=== PATIENT | male | born 1980 ===

== ENCOUNTER → 2021-05-30 | Outpatient (CLI) | payer OTHER ==
--- NOTE | 2021-05-30 09:04 | RAD ---
EXAM: Bilateral digital diagnostic mammogram with tomosynthesis; bilateral breast sonogram. HISTORY: 40-year-old male presents with a left breast lump. TECHNIQUE: Full-field digital craniocaudal and mediolateral oblique 2D and 3D tomosynthesis images of both breasts are obtained for evaluation. Computer aided detection was applied. Sonographic imaging of both breasts was also performed. COMPARISON: None. BREAST PARENCHYMAL DENSITY: Level A - Mostly fat. FINDINGS: There is asymmetric increased density within the subareolar aspect of the left greater than right breast. There is no architectural distortion. There is no suspicious calcification. The mammog raphic appearance favors gynecomastia. Sonographic imaging of the breasts demonstrates asymmetric decreased echogenicity within the subareol ar aspect of the left greater than right breast. This measures up to 3.1 cm on the left and is not as sociated with abnormal posterior shadowing or architectural distortion. The sonographic appearance fa vors gynecomastia. IMPRESSION: 1. Mammographic and sonographic findings favoring benign asymmetric left-sided gynecomastia, correspo nding with the location of palpable concern. Correlate for underlying drug or endocrine related etiol ogies. Continued clinical follow-up of palpable abnormalities is recommended. If there is no known et iology or if there is a change in physical exam findings, follow-up evaluation and possible tissue sa mpling can be performed. 2. BI-RADS Category 2: Benign finding(s). If your mammogram demonstrates that you have dense breast tissue, which could hide abnormalities, and if you have other risk factors for breast cancer that have been identified, you might benefit from s upplemental screening tests that may be suggested by your ordering physician. Dense breast tissue, i n and of itself, is a relatively common condition. This information is not provided to cause undue c oncern, but rather to raise your awareness and to promote discussion with your physician regarding th e presence of other risk factors, in addition to dense breast tissue. A report of your mammography re sults will be sent to you and your physician. You should contact your physician if you have any ques tions or concerns regarding this report. Mammography is a sensitive method for finding small breast cancers, but it does not detect them all a nd is not a substitute for careful clinical examination. A negative mammogram does not negate a clin ically suspicious finding and should not result in delay in biopsying a clinically suspicious abnorma lity. PQRS compliance statement - Patient information was entered into a reminder system with a target due date for the next mammogram. "Our facility is accredited by the [employer] Mammography [employer]." Electronically signed by: Ami Kowalski MD (05/30/2021 9:01 AM) [id number]
== END ==
LOC: MAMMO 08:12
PROVIDERS: ATTEND Family Medicine
DX: N62 Hypertrophy of breast (principal)
CPT/HCPCS: 76641; 77066; G0279; 77062